=== PATIENT | male | born 1980 | race Caucasian/White ===

== ENCOUNTER 2017-06-07 18:00 | Emergency (ER) | payer BC, OTHER ==
[~2017-06-07] VITALS: Ht 172.7 cm; Wt 155.0 kg
[2017-06-07 18:49] VITALS: Ht 172.7 cm; Wt 155.0 kg
[2017-06-07] MEDS ORDERED: SOD CHLORIDE 0.9% 1,000 ML IV STA (21:29)
--- NOTE | 2017-06-07 23:11 | ERD ---
ER Documentation Chief Complaint Chief Complaint bib self, cc: blood in stool, and abdominal pain x 1 day HPI Patient is a 36-year-old male with depression who presents with rectal bleeding. He said that he had rectal bleeding this morning. It started with constipation but then it started coming out more heavily. He said there was blood in the toilet. He denies hemorrhoids. He had no syncope. He did feel dizzy however. He does not take blood thinning medications. He has had no treatment as of yet. ROS All systems reviewed and are negative except as per history of present illness. Medications Home Meds Reported Medications Acetaminophen* (Acetaminophen*) 500 MG Extra Strength Tablet, 500 MG PO Q4H Y for PAIN AND OR ELEVATED TEMP, TAB 06/07/17 Ibuprofen* (Ibuprofen*) 200 Mg Capsule, 200 MG PO Q6, CAP 06/07/17 Cetirizine Hcl* (Zyrtec*) 10 Mg Capsule, 10 MG PO DAILY, TAB 06/07/17 Allergies Allergies: Coded Allergies: bupropion (Unverified Allergy, Unknown, HIVES ; ITCHING, 06/07/17) PMhx/Soc History of Surgery: Yes (TONSILS) Anesthesia Reaction: No Hx Neurological Disorder: No Hx Respiratory Disorders: No Hx Cardiac Disorders: No Hx Psychiatric Problems: Yes (DEPRESSION) Hx Miscellaneous Medical Probl: Yes (SEASONAL ALLERGIES) Hx Alcohol Use: Yes Hx Substance Use: No Hx Tobacco Use: No Smoking Status: Never smoker FmHx Family History: diabetes Physical Exam Vitals Vital Signs Date Time Temp Pulse Resp B/P Pulse Ox O2 Delivery O2 Flow Rate FiO2 06/07/17 18:49 98.2 85 19 125/89 100 Physical Exam Const: No acute distress Head: Atraumatic Eyes: Normal Conjunctiva ENT: Normal External Ears, Nose and Mouth. Neck: Full range of motion..~ No meningismus. Resp: Clear to auscultation bilaterally Cardio: Regular rate and rhythm, no murmurs Abd: Soft, non tender, non distended. Normal bowel sounds Skin: No petechiae or rashes Back: No midline or flank tenderness Ext: No cyanosis, or edema Neur: Awake and alert Psych: Normal Mood and Affect Result Diagram: 06/07/17219906/07/172199 Results 24 hrs Laboratory Tests Test 06/07/17 22:00 White Blood Count 11.510^3/ul Red Blood Count 4.8210^6/ul Hemoglobin 12.9g/dl Hematocrit 40.5% Mean Corpuscular Volume 84.0fl Mean Corpuscular Hemoglobin 26.8pg Mean Corpuscular Hemoglobin Concent 31.9g/dl Red Cell Distribution Width 13.4% Platelet Count 69855^3/UL Mean Platelet Volume 9.3fl Neutrophils % 59.3% Lymphocytes % 30.0% Monocytes % 7.2% Eosinophils % 2.2% Basophils % 0.7% Nucleated Red Blood Cells % 0.0/100WBC Neutrophils # 6.810^3/ul Lymphocytes # 3.510^3/ul Monocytes # 0.810^3/ul Eosinophils # 0.310^3/ul Basophils # 0.110^3/ul Nucleated Red Blood Cells # 0.010^3/ul Prothrombin Time 13.0Sec Prothrombin Time Ratio 1.0 INR International Normalized Ratio 0.98 Activated Partial Thromboplast Time 30.2Sec Sodium Level 142mmol/L Potassium Level 3.9mmol/L Chloride Level 107mmol/L Carbon Dioxide Level 24mmol/L Anion Gap 15 Blood Urea Nitrogen 13mg/dl Creatinine 0.80mg/dl Glucose Level 107mg/dl Calcium Level 8.3mg/dl Total Bilirubin 0.3mg/dl Direct Bilirubin 0.00mg/dl Indirect Bilirubin 0.3mg/dl Aspartate Amino Transf (AST/SGOT) 37IU/L Alanine Aminotransferase (ALT/SGPT) 74IU/L Alkaline Phosphatase 103IU/L Troponin I < 0.012ng/ml Total Protein 7.4g/dl Albumin 4.0g/dl Globulin 3.40g/dl Albumin/Globulin Ratio 1.17 Current Medications Medications (Trade) Dose Ordered Sig/Germaine Route PRN Reason Start Time Stop Time Status Last Admin Dose Admin Sodium Chloride (NS) 1,000 ml @ 1,000 mls/hr Q1H STAT IV 06/07/17 21:29 06/07/17 22:28 DC 06/07/17 21:50 Procedures/MDM EKG read by me: Rate/Rhythm: Regular rate and rhythm at a normal rate Intervals: Normal Impression: No evidence of ischemia or arrhythmia Patient is a 36-year-old male who presents with rectal bleeding. He has a mild anemia but is otherwise well-appearing with normal vital signs. I believe outpatient management is appropriate. The patient will need to follow-up closely with a primary doctor within 24-48 hours and can return sooner for any worsening symptoms. The patient was given Anusol suppository. He can return for any worsening symptoms. Departure Diagnosis: Primary Impression: GI bleed GI bleed type/associated pathology: unspecified gastrointestinal hemorrhage type Qualified Code: K92.2 - Gastrointestinal hemorrhage, unspecified gastrointestinal hemorrhage type Condition: Fair Patient Instructions: When You Have Gastrointestinal (GI) Bleeding Referrals: Your doctor Additional Instructions: Call your primary care doctor TOMORROW for an appointment during the next 1-2 days.See the doctor sooner or return here if your condition worsens before your appointment time. JANI SINCLAIR MD Jun 07, 2017 23:11
[2017-06-07] MEDS ORDERED: CETI10CA PO (23:13)
[2017-06-07] MEDS ORDERED: IBUP200C PO (23:13)
[2017-06-07] MEDS ORDERED: ACET-141 PO (23:13)
[2017-06-07 23:32] VITALS: BP 123/86; PULSE 65; RESP 16
== END 2017-06-07 23:32 | disposition home or self-care (01) ==
LOC: E/R 18:00
DX: K92.2 Gastrointestinal hemorrhage, unspecified (principal); R00.2 Palpitations
CPT/HCPCS: 36415; 80053; 84484; 85025; 85610; 85730; 86850; 86900; 86901; 93005; 99284; J7030